=== PATIENT | male | born 1995 | race Caucasian/White ===

== ENCOUNTER 2018-03-12 22:08 | Emergency (ER) | payer SELFPAY ==
[~2018-03-12] VITALS: Ht 183.5 cm; Wt 86.2 kg
[2018-03-12] MEDS ORDERED: GABAPENTIN600 MG ORAL (22:24)
[2018-03-12 22:35] VITALS: BP 152/72
[2018-03-12] MEDS ORDERED: IBUPROFEN600 MG ORAL (22:40)
[2018-03-12] MEDS ORDERED: ROBAXIN-750750 MG PO (22:40)
[2018-03-12] MEDS ORDERED: Methocarbamol 750mg tab ORAL ONE (22:45)
[2018-03-12] MEDS ORDERED: Ketorolac 30mg Inj IM ONE (22:45)
[2018-03-12 23:10] VITALS: BP 152/72
--- NOTE | 2018-03-13 01:37 | Emergency Room Report ---
History of Present Illness General Chief Complaint: Lower Back Pain or Injury Source: Patient Present Illness HPI 22-year-old male history of psychiatric p/w back pain for 1 days. L. Pain is localized to [ ] lower back, sharp in nature, radiating down leg. Movement worsens pain. Patient has experienced this similar pain in the past. Denies trauma. Denies lower extremity weakness/numbness, no bowel/bladder retention or incontinence, saddle anesthesia. Denies fever, chills, abdominal pain, n/v, dysuria/hematuria. No history of IVDA Allergies: Coded Allergies: No Known Allergies (Unverified , 03/12/18) Patient History Past Medical History: see triage record Past Surgical History: none Pertinent Family History: none Reviewed Nursing Documentation: PMH: Agreed; PSxH: Agreed Nursing Documentation-PMH Past Medical History: No History, Except For Review of Systems All Other Systems: negative except mentioned in HPI Physical Exam Vital Signs Date Time Temp Pulse Resp B/P (MAP) Pulse Ox O2 Delivery O2 Flow Rate FiO2 03/12/18 22:22 98.3 98 20 152/72 96 Room Air 98.2 Sp02 EP Interpretation: reviewed, normal General Appearance: alert, GCS 15, non-toxic, moderate distress Head: normocephalic, atraumatic Eyes: bilateral eye normal inspection, bilateral eye PERRL, bilateral eye EOMI ENT: normal ENT inspection, normal pharynx, normal voice, moist mucus membranes Neck: normal inspection, full range of motion, supple Respiratory: normal inspection, lungs clear, normal breath sounds, no respiratory distress, no retraction, no wheezing, speaking full sentences, chest symmetrical Cardiovascular #1: normal inspection, regular rate, rhythm, no edema, normal capillary refill Cardiovascular #2: 2+ radial (R), 2+ radial (L) Gastrointestinal: normal inspection, non tender, soft, non-distended, no guarding Genitourinary: no CVA tenderness Musculoskeletal: normal range of motion, other - Left lower lumbar paraspinal tenderness, no midline tenderness, full range of motion, able to bear weight on both extremities without issue Neurologic: normal inspection, alert, oriented x3, responsive, motor strength/ tone normal, sensory intact, normal gait, speech normal Psychiatric: normal inspection, judgement/insight normal, memory normal Skin: normal inspection, normal color, no rash, warm/dry, well hydrated, normal turgor Medical Decision Making Diagnostic Impression: Primary Impression: Low back pain ER Course 22-year-old male p/w back pain DDX: Likely musculoskeletal back pain vs. muscular strain vs. sciatica Lumbar fracture is unlikely given patients age, no midline tenderness, no history of trauma, and that patient is ambulatory. Therefore, at this time no imaging is indicated Serious diagnoses such as cord compression, epidural abscess is unlikely in this patient given the clinical scenario and abscess of neurological symptoms or findings. Patient appears nontoxic. Plan: Pain control, robaxin ER course: Patient has remained nontoxic appearing and ambulatory in the ED. Pain improved w/ medications Disposition: Patient will be discharged to home with prescription of motrin and robaxin. Strict precautions discussed with patient on when to emergently return to the ED which includes severe/worsening back pain, leg weakness/numbness, urinary retention/incontinence, fever or chills, which may indicate severe illness. Patient is to follow up with their PMD within 5 days. Patient agrees with plan. Please note that this Emergency Department Report was dictated using [employer] screen worker technology software, occasionally this can lead to erroneous entry secondary to interpretation by the dictation equipment. Last Vital Signs Date Time Temp Pulse Resp B/P (MAP) Pulse Ox O2 Delivery O2 Flow Rate FiO2 03/12/18 23:10 98.3 98 20 152/72 96 Room Air 208.9 Disposition: HOME, SELF-CARE Condition: Improved Scripts Ibuprofen* (MOTRIN*) 600 Mg Tablet 600 MG ORAL Q8H PRN for For Pain, #30 TAB 0 Refills Prov: Maite Ferris M.D. 03/12/18 Methocarbamol* (ROBAXIN-750*) 750 Mg Tablet 750 MG PO QID, #28 TAB 0 Refills Prov: Maite Ferris M.D. 03/12/18 Referrals: NOT CHOSEN [facility]/,REFERRING (PCP) Patient Instructions: Lumbosacral Strain, Back Pain, Adult Maite Ferris M.D. Mar 13, 2018 01:37
== END 2018-03-12 23:15 | disposition home or self-care (01) ==
LOC: EMR 22:24
DX: M54.5 Low back pain (principal)
CPT/HCPCS: 96372; 99284; J1885

== ENCOUNTER 2018-06-28 23:01 | Emergency (ER) | payer MEDICAID, OTHER ==
[~2018-06-28] VITALS: Ht 182.9 cm; Wt 86.2 kg
[~2018-06-28 23:01] MED LIST: GABAPENTIN600 MG ORAL; IBUPROFEN600 MG ORAL; ROBAXIN-750750 MG PO
[2018-06-28 23:05] VITALS: BP 136/76
[2018-06-29 00:30] VITALS: BP 131/74
--- NOTE | 2018-06-29 04:13 | Emergency Room Report ---
History of Present Illness General Chief Complaint: Back Pain-No Injury Source: Patient Present Illness HPI This patient c/o burning low back pain across low back midline. No trauma, no fever, similar to past. No abd pain. No vomiting. No cp, sob. Allergies: Coded Allergies: No Known Allergies (Unverified , 03/12/18) Review of Systems Constitutional: Denies: fever Eye: Denies: acuity changes Respiratory: Denies: cough, shortness of breath Cardiovascular: Denies: chest pain Gastrointestinal: Denies: nausea, vomiting Skin: Denies: rash Neurological: Denies: headache Physical Exam Vital Signs Date Time Temp Pulse Resp B/P (MAP) Pulse Ox O2 Delivery O2 Flow Rate FiO2 06/28/18 23:05 98.3 84 16 136/76 98 Room Air 98.2 General Appearance: well appearing, no apparent distress Head: normocephalic, atraumatic ENT: hearing grossly normal, normal voice Neck: full range of motion, supple Respiratory: no respiratory distress, speaking full sentences Musculoskeletal: no calf tenderness Neurologic: alert, normal gait Psychiatric: mood/affect normal Skin: no rash Medical Decision Making ER Course i saw the patient in the chairs and apparently he left before i could complete my assessment. i did not see him leave but i had seen him ambulate in ed without difficulty. he had told me this was not a new problem and he wanted medication. i had intended to order nsaid but never had the opportunity. pt. eloped. Last Vital Signs Date Time Temp Pulse Resp B/P (MAP) Pulse Ox O2 Delivery O2 Flow Rate FiO2 06/29/18 01:15 98.2 70 16 131/74 98 Room Air 98.2 Status: other Disposition: ELOPED Condition: Stable Referrals: BRONWYN SEE,REFERRING (PCP) Patient Instructions: Back Pain, Adult Dhruv Pittman M.D. Jun 29, 2018 04:13
== END 2018-06-29 01:20 | disposition left against medical advice (07) ==
LOC: EMR 23:55
DX: M54.5 Low back pain (principal); Z53.21 Procedure and treatment not carried out due to patient leaving prior to being seen by health care provider
CPT/HCPCS: 99281

== ENCOUNTER 2018-11-19 14:36 | Emergency (ER) | payer OTHER ==
[~2018-11-19] VITALS: Ht 182.9 cm; Wt 81.6 kg
[2018-11-19 14:45] VITALS: BP 132/76
--- NOTE | 2018-11-19 15:11 | Emergency Room Report ---
History of Present Illness General Chief Complaint: Laceration Source: Patient Present Illness HPI 23-year-old male presents to the emergency department complaining of 9 out of 10 in severity burning sensation localized to the distal aspect of the right index finger times 20 minutes. Patient reports that he was chopping vegetables and accidentally sliced part of his nail and the tip of his finger. Patient reports initially a lot of blood which has subsided at this time. He denies paresthesias he states he is up-to-date with tetanus vaccination and denies taking blood thinning medications. Pt reports that he is left hand dominant Allergies: Coded Allergies: No Known Allergies (Unverified , 03/12/18) Patient History Past Medical History: see triage record Past Surgical History: none Pertinent Family History: none Immunizations: UTD Reviewed Nursing Documentation: PMH: Agreed; PSxH: Agreed Nursing Documentation-PMH Past Medical History: No History, Except For Review of Systems All Other Systems: negative except mentioned in HPI Physical Exam Vital Signs Date Time Temp Pulse Resp B/P (MAP) Pulse Ox O2 Delivery O2 Flow Rate FiO2 11/19/18 14:41 98.1 76 20 136/80 98 Room Air Sp02 EP Interpretation: reviewed, normal General Appearance: no apparent distress, alert, GCS 15, non-toxic Head: normocephalic, atraumatic Eyes: bilateral eye normal inspection, bilateral eye PERRL ENT: hearing grossly normal, normal voice Neck: full range of motion Respiratory: normal breath sounds, speaking full sentences Cardiovascular #1: regular rate, rhythm, normal capillary refill Musculoskeletal: back normal, gait/station normal, normal range of motion, non- tender Neurologic: alert, oriented x3, responsive, motor strength/tone normal, sensory intact, speech normal, grossly normal Psychiatric: judgement/insight normal Skin: laceration - Nail avulsion laceration approx 0.5 cm in length Medical Decision Making PA Attestation Dr. Nunes is my supervising Physician whom patient management has been discussed with. Diagnostic Impression: Primary Impression: Nail avulsion, finger Qualified Codes: S61.309A - Unspecified open wound of unspecified finger with damage to nail, initial encounter Additional Impression: Laceration ER Course 23-year-old male presents to the emergency department complaining of 9 out of 10 in severity burning sensation localized to the distal aspect of the right index finger times 20 minutes. Patient reports that he was chopping vegetables and accidentally sliced part of his nail and the tip of his finger. Patient reports initially a lot of blood which has subsided at this time. He denies paresthesias he states he is up-to-date with tetanus vaccination and denies taking blood thinning medications. Pt reports that he is left hand dominant Ddx considered but are not limited to laceration, tendon injury, cellulitis, amputation Vital signs: are WNL, pt. is afebrile H&PE are most consistent with: Nail avulsion laceration approx 0.5 cm in length, not bleeding at this time. ORDERS: none required at this time, the diagnosis is clinical ED INTERVENTIONS: - The wound was copiously irrigated with normal saline, and explored- laceration was determined to not be appropriate for laceration repair due to nature of the injury ( Avulsion) - pt. is anesthetized with 1%lidocaine cream -Bacitracin and sterile dressing is applied. - Finger Splint applied to the right index finger by distribution tech. Pt. remains neurovascularly intact. Discussed with patient: The extent of scarring and damage to nail bed and future nail growth is unknown at this time. DISCHARGE: At this time pt. is stable for d/c to home. Will provide printed patient care instructions, and any necessary prescriptions. Care plan and follow up instructions have been discussed with the patient prior to discharge. Last Vital Signs Date Time Temp Pulse Resp B/P (MAP) Pulse Ox O2 Delivery O2 Flow Rate FiO2 11/19/18 14:45 98.3 73 18 132/76 99 Room Air Disposition: HOME, SELF-CARE Condition: Stable Scripts Acetaminophen* (TYLENOL EXTRA STRENGTH*) 500 Mg Tablet 500 MG ORAL Q6H, #20 TAB 0 Refills Prov: Eliz Elliott 11/19/18 Bacitracin/Polymyxin B Sulfate (BACITRACIN-POLYMYXIN OINTMENT) 28.35 Gm Oint...g. 1 APPLIC TP BID, #28.3 GM Prov: Eliz Elliott 11/19/18 Patient Instructions: Nonsutured Laceration Care Additional Instructions: Take medications as directed. Follow up with a Primary Care Provider in 3-5 days, even if your symptoms have resolved. --Please review list of primary care clinics, if you do not already have a primary care provider Return sooner to ED if new symptoms occur, or current symptoms become worse. - Please note that this Emergency Department Report was dictated using [employer]centratingmotor scooter repairer technology software, occasionally this can lead to erroneous entry secondary to interpretation by the dictation equipment. Eliz Elliott Nov 19, 2018 15:11
[2018-11-19] MEDS ORDERED: Bacitracin Oint UD TOPIC ONE (15:15)
[2018-11-19] MEDS ORDERED: TYLENOL EXTRA500 MG ORAL (15:26)
[2018-11-19] MEDS ORDERED: BACITRACIN-P28.35 GM TP (15:26)
[2018-11-19 15:40] VITALS: BP 128/74
== END 2018-11-19 15:40 | disposition home or self-care (01) ==
LOC: EMR 15:10
DX: S61.210A Laceration without foreign body of right index finger without damage to nail, initial encounter (principal); W26.0XXA Contact with knife, initial encounter; Y93.G1 Activity, food preparation and clean up; Y92.9 Unspecified place or not applicable
CPT/HCPCS: 29130; 99283

== ENCOUNTER 2019-10-01 16:50 | Emergency (ER) | payer OTHER ==
[~2019-10-01] VITALS: Ht 185.4 cm; Wt 88.5 kg
[~2019-10-01 16:50] MED LIST changes: +BACITRACIN-P28.35 GM TP; +TYLENOL EXTRA500 MG ORAL
[2019-10-01] MEDS ORDERED: CATAPRES0.1 MG ORAL (17:03)
--- NOTE | 2019-10-01 17:07 | NUR ---
ED Nurse Note: reported recent fever episode to ERMD.
--- NOTE | 2019-10-01 17:13 | NUR ---
ED Nurse Note: Patient presents with complaints of flu-like symptoms and right leg pain 8/10. Patient states that the whole right side is inflammed.
[2019-10-01 17:15] VITALS: BP 136/82
[2019-10-01] MEDS ORDERED: Piperacillin/Tazobactam 2.25 GM in NS 110 ML IVPB ONE (17:30)
[2019-10-01] MEDS ORDERED: Vancomycin 1.5 GM in NS 275 ML IVPB ONE (17:30)
--- NOTE | 2019-10-01 18:13 | NUR ---
ED Nurse Note: Patient resting comfortably with girlfriend at bedside. will continue to monitor.
[2019-10-01] MEDS ORDERED: Ketorolac 30mg Inj IV ONE (18:15)
--- NOTE | 2019-10-01 19:16 | NUR ---
HAND-OFF: Patient endorsed to charge nurse
[2019-10-01] MEDS ORDERED: HYDROcodone/Acetamin 5/325 tab ORAL ONE (19:30)
--- NOTE | 2019-10-01 19:43 | Emergency Room Report ---
History of Present Illness General Chief Complaint: Fever Source: Patient Present Illness HPI 24-year-old male presents to the emergency department complaining of generalized 8 out of 10 severity body aches, muscle pains and intermittent fevers since yesterday. Patient reports fever of 100.2 which responded well to Tylenol p.o. at home. Patient states she has had similar symptoms in the past which resolved on their own after a few days he states it is very important that he make it to work on Saturday. Patient denies history of immune compromise. He reports some nasal congestion but denies sore throat, cough or rhinorrhea. Patient denies recent travel or ill contacts with similar symptoms he reports he has exacerbation of migraine headache he states he has a history of migraines and this 1 is presenting characteristically for him. Patient reports some mild photophobia and throbbing pain. Patient denies nausea vomiting. Patient denies neck pain or stiffness. Denies abdominal pain/ tenderness, CP, palpitations, LOC, AMS, dizziness, Changes in Vision, Sensation , paresthesias, or a sudden onset of a severe headache. Patient denies any other aggravating or relieving factors at this time Allergies: Coded Allergies: No Known Allergies (Unverified , 03/12/18) Patient History Past Medical History: see triage record Past Surgical History: none Pertinent Family History: none Immunizations: UTD - except for this years flu Reviewed Nursing Documentation: PMH: Agreed; PSxH: Agreed Nursing Documentation-[facility] Past Medical History: No History, Except For Hx Cardiac Problems: No - h/o concussion History Of Psychiatric Problem: Yes - anxiety Hx Neurological Problems: Yes - neuropathy Review of Systems All Other Systems: negative except mentioned in HPI Physical Exam Vital Signs Date Time Temp Pulse Resp B/P (MAP) Pulse Ox O2 Delivery O2 Flow Rate FiO2 10/01/19 16:56 99.5 107 17 136/82 (100) 98 Room Air Sp02 EP Interpretation: reviewed, normal General Appearance: no apparent distress, alert, GCS 15, non-toxic Head: normocephalic, atraumatic Eyes: bilateral eye normal inspection, bilateral eye PERRL, bilateral eye other - no photophobia on PE ENT: hearing grossly normal, normal voice, uvula midline, moist mucus membranes Neck: full range of motion, no meningismus, no bony tend Respiratory: chest non-tender, lungs clear, normal breath sounds, no respiratory distress, no accessory muscle use, no wheezing, speaking full sentences Cardiovascular #1: regular rate, rhythm Gastrointestinal: normal bowel sounds, non tender, soft, non-distended, no guarding Genitourinary: normal inspection, no CVA tenderness Musculoskeletal: back normal, gait/station normal, normal range of motion, non- tender Neurologic: alert, oriented x3, responsive, motor strength/tone normal, sensory intact, normal gait, speech normal, grossly normal Psychiatric: judgement/insight normal Skin: no rash, normal color, normal inspection Lymphatic: no adenopathy Medical Decision Making PA Attestation Dr. Weiss is my supervising Physician whom patient management has been discussed with. Diagnostic Impression: Primary Impression: Viral syndrome Additional Impression: Head ache Qualified Codes: R51 - Headache ER Course 24-year-old male presents to the emergency department complaining of generalized 8 out of 10 severity body aches, muscle pains and intermittent fevers since yesterday. Patient reports fever of 100.2 which responded well to Tylenol p.o. at home. Patient states she has had similar symptoms in the past which resolved on their own after a few days he states it is very important that he make it to work on Saturday. Patient denies history of immune compromise. He reports some nasal congestion but denies sore throat, cough or rhinorrhea. Patient denies recent travel or ill contacts with similar symptoms he reports he has exacerbation of migraine headache he states he has a history of migraines and this 1 is presenting characteristically for him. Patient reports some mild photophobia and throbbing pain. Patient denies nausea vomiting. He reports decrease in appetite and fluid intake. He denies constipation or diarrhea. Patient denies neck pain or stiffness. Denies abdominal pain/tenderness, CP, palpitations, LOC, AMS, dizziness, Changes in Vision, Sensation, paresthesias, or a sudden onset of a severe headache. Patient denies any other aggravating or relieving factors at this time Ddx considered but are not limited to URI, pneumonia, PE, strep pharyngitis, meningitis, influenza, OM/OE just to name a few. Vital signs: Pt. is afebrile, the remaining VS are WNL H&PE are most consistent with Viral Syndrome suspicious for Influenza will treat clinically - no meningeal signs, Lungs are clear and oropharynx is not involved, no evidence of bacterial infection at this time. ORDERS: none required at this time, the diagnosis is clinical ED INTERVENTIONS: -1 L IV fluids Toradol IV 30 mg Preble 5 mg -I do not identify an emergent condition at this time. With current presentation , pt. is stable for close outpatient follow up and conservative treatment. D/ w pt. to return promptly to ED with worsening or new symptoms.- Pt. verbalizes' understanding and agreement with proposed treatment plan. --PT. EDUCATION: - regarding inappropriate antibiotic prescribing with viral syndrome/illnesses. Discussed with patient conservative/symptomatic treatments. DISCHARGE: At this time pt. is stable for d/c to home. Will provide printed patient care instructions, and any necessary prescriptions. Care plan and follow up instructions have been discussed with the patient prior to discharge. Last Vital Signs Date Time Temp Pulse Resp B/P (MAP) Pulse Ox O2 Delivery O2 Flow Rate FiO2 10/01/19 19:21 99.5 10/01/19 17:15 107 17 136/82 98 Room Air Disposition: HOME, SELF-CARE Condition: Stable Scripts Methocarbamol* (ROBAXIN-750*) 750 Mg Tablet 750 MG PO QID for 7 Days, #28 TAB 0 Refills Prov: Eliz Elliott 10/01/19 Ibuprofen* (MOTRIN*) 600 Mg Tablet 600 MG ORAL THREE TIMES A DAY, #30 TAB 0 Refills Prov: Eliz Elliott 10/01/19 Acetaminophen* (TYLENOL EXTRA STRENGTH*) 500 Mg Tablet 500 MG ORAL Q6H PRN for Mild Pain/Temp > 100.5, #30 TAB 0 Refills Prov: Eliz Elliott 10/01/19 Patient Instructions: Fever, Adult, [id number], Medical Screening Exam, Muscle Cramps and Spasms, [id number] Additional Instructions: Take medications as directed. Follow up with a Primary Care Provider in 3-5 days, even if your symptoms have resolved. --Please review list of primary care clinics, if you do not already have a primary care provider Return sooner to ED if new symptoms occur, or current symptoms become worse. Do not drink alcohol, drive, or operate heavy machinery while taking Robaxin ( Muscle Relaxers) as this may cause drowsiness. - Please note that this Emergency Department Report was dictated using [employer] Technology[employer] internship technology software, occasionally this can lead to erroneous entry secondary to interpretation by the dictation equipment. Eliz Elliott Oct 01, 2019 19:43
[2019-10-01] MEDS ORDERED: ROBAXIN-750750 MG PO (19:45)
[2019-10-01] MEDS ORDERED: IBUPROFEN600 MG ORAL (19:45)
[2019-10-01] MEDS ORDERED: TYLENOL EXTRA500 MG ORAL (19:45)
--- NOTE | 2019-10-01 19:50 | NUR ---
ED Nurse Note: Patient cleared for discharge, verbalized understanding of discharge instructions, ID band removed, iv removed.. Patient is ambulatory with steady gait with no s/s of acute distress.
[2019-10-01 19:51] VITALS: BP 136/82
--- NOTE | 2019-10-03 12:48 | Cardiology Report ---
APPROVED REPORT EKG Measurement Heart [id number] Normal sinus rhythm Normal ECG
== END 2019-10-01 19:52 | disposition home or self-care (01) ==
LOC: EMR 19:34
DX: B34.9 Viral infection, unspecified (principal); R51 Headache; F41.9 Anxiety disorder, unspecified; G62.9 Polyneuropathy, unspecified
CPT/HCPCS: 93005; 96361; 96374; J1885; Z7502; 99284; J7030